=== PATIENT | female | born 2000 | race Caucasian/White ===

== ENCOUNTER 2021-07-23 14:12 | Emergency (ER) | payer OTHER, SELFPAY ==
[2021-07-23 14:28] VITALS: BP 122/81; PULSE 94; RESP 16; TEMP 36.5; O2SAT 99
--- NOTE | 2021-07-23 14:32 | XRR_ITS ---
PROCEDURE INFORMATION: Exam: XR Left Shoulder Exam date and time: 07/23/2021 2:32 PM Age: 21 years old Clinical indication: Pain; Shoulder; Left; Additional info: Shoudler dislocation TECHNIQUE: Imaging protocol: XR Left shoulder. Views: 2 or more views. COMPARISON: No relevant prior studies available. FINDINGS: Bones/joints: Normal. No fracture or dislocation. Soft tissues: Normal. XR/XR shoulder LT min 2V* 43222 IMPRESSION: No fracture or dislocation. Radiation Dose CTDIVOL = (mGy): DLP = (mGy-cm)
[2021-07-23 14:33] VITALS: TEMP 36.2; BMI 29.8
[2021-07-23] MEDS: acetaminophen 500 mg Tablet 1000 MG PO (14:40)
[2021-07-23] MEDS: ketorolac 30 mg/mL INJ IVP (14:42)
--- NOTE | 2021-07-23 14:46 | PC.NURSE ---
Pt states she was at work this morning and was attempting to assist a pt with sitting when she felt a pop in her left shoulder and had immediate pain in the shoulder and scapula area. Pt reports she has been unable to move her arm since. Pt A/O x4.
--- NOTE | 2021-07-23 14:49 | ED_ITS ---
HPI - General Adult General: Chief complaint: Extremity Injury, Upper Stated complaint: L SHOULDER INJURY: W/C Time Seen by Provider: 07/23/21 14:25 History of Present Illness: HPI narrative: 21-year-old female with no significant past medical history presents emergency room with complaints of left shoulder pain and decreased range of motion since 1030 this morning. 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 Since then, patient has difficulty ranging the left shoulder with significant shooting pain down the arm. Patient has no numbness, decreased range of motion or weakness in the left side. No other focal injuries at this time. Onset: 4 hrs ago Duration:4 hrs Location:home Severity:moderate Review of Systems Narrative: Constitutional: No fever, no chills. HEENT: No vision changes CV: No chest pain, no palpitations PULM: no cough, no dyspnea. GI: No abdominal pain, no N/V/D. : No dysuria, +l shoulder pain MSKEL: No muscle pain SKIN: No new rashes, no lesions. NEURO: No headache, no focal weakness. HEME: No visible bruises PSYCH: Normal mood Physical Exam Narrative: EXAM NARRATIVE: Head: Atraumatic Eyes: PERRL, conjunctiva without injection ENT: Mucous membrane moist NECK: Supple, ROM intact LUNGS: LCTAB, no crackles/rhonchi CV: RRR ABDOMEN: Soft, nontender in all quadrants EXTREMITY: +decreased ROM of the L shoulder due to pain, sensation over the L deltoid intact, 2+ radial pusle L side, neurovascular exam intact L hand SKIN: No rash or erythema NEURO: Awake and alert, no focal motor deficits PSYCH: Normal mood and affect Course Vital Signs: Vital signs: Vital Signs Temperature 97.1 F L 07/23/21 14:33 Pulse Rate 94 07/23/21 14:28 Respiratory Rate 16 07/23/21 14:28 Blood Pressure 122/81 07/23/21 14:28 Pulse Oximetry 99 07/23/21 14:28 MDM - General Adult MDM Narrative: Medical decision making narrative: 21-year-old female with no significant past medical history presents emergency room with complaints of left shoulder pain. On exam, patient's patient is unable to range the left shoulder due to pain. Left shoulder does not look grossly dislocated. Neurovascular exam of the left side intact. Axillary sensation over the left deltoid intact. X-rays not show any signs of acute dislocation, or acute fracture. Given toradol IM and tylenol I have given patient follow up with our case finisher to be seen by our outpatient Orthopedics for management of shoulder pain. Patient aware of a call from our case finisher to schedule for appointment(s) and verbalizes understanding of the importance of following up. Patient is informed to get an MRI of the shoulder should she still have pain and decreased range of motion as she may still have a rotator cuff tear at this time. I have offered patient a CT of the shoulder just to ensure there is no occult fracture, however patient at this time declined. Patient elects to follow-up with her primary care provider further evaluation. I have informed patient to get a repeat x-ray in 1 week to ensure that there is no occult fracture at this time. Rx lidocaine patch, menthol, tylenol, and norflex PRN pain Disposition: Discharge. Patient counseled regarding diagnostic impression, treatment plan. Patient given ED strict return precautions to return for continuation, worsening, or development of new symptoms. Instructed to f/u w/ PCP and orthopedics regarding symptoms today. Patient verbalized understanding. Imaging Data^: Other Imaging: Radiologist's impression: [id number] [place], [place] [id number] ReportSigned Patient: Ileana Granado #: [id number]: [id number]#:[id number]/Sex: 21 / FADM Date: 07/23/21[facility]Attending Dr: Ordering Provider/Ordering MD: Radha Pang MD Date of Service: 07/23/21 Procedure(s): XR shoulder LT min 2V* 11425 Accession Number(s): [id number] Report Number: [id number] PROCEDURE INFORMATION: Exam: XR Left Shoulder Exam date and time: 07/23/2021 2:32 PM Age: 21 years old Clinical indication: Pain; Shoulder; Left; Additional info: Shoudler dislocation TECHNIQUE: Imaging protocol: XR Left shoulder. Views: 2 or more views. COMPARISON: No relevant prior studies available. FINDINGS: Bones/joints: Normal. No fracture or dislocation. Soft tissues: Normal. XR/XR shoulder LT min 2V* [id number] IMPRESSION: No fracture or dislocation. Radiation Dose CTDIVOL = (mGy): DLP = (mGy-cm) Dictated By:Rey Marx MDSigned By:Rey Marx MDSigned Date/Time:07/23/21 1527DD/ 1432 Discharge Plan Discharge Patient Disposition: Home Clinical Impression: Acute shoulder pain Condition: Stable Prescriptions: New acetaminophen 500 mg tablet 500 mg PO Q6H PRN (Reason: pain) 5 Days Qty: 20 RF: 0 lidocaine 5 % adhesive patch,medicated 1 patch topical DAILY PRN (Reason: pain) 10 Days Qty: 10 RF: 0 orphenadrine citrate 100 mg tablet extended release 100 mg PO BID PRN (Reason: pain) 10 Days Qty: 20 RF: 0 Biofreeze (menthol) 5 % gel 1 ea topical BID PRN (Reason: pain) 10 Days Qty: 1 RF: 0 Discharge Orders: Discharge ED (Routine); Ordered 07/23/21 Ordered By: Radha Pang Referrals: Kylah Edwards MD [Primary Care Provider] - Discharge Diet: Advance as tolerated Discharge Activity: Resume usual activity Patient Instructions: Swollen Joint (ED), Shoulder Pain (ED) Activity Restrictions/Additional Instructions: Our case finisher will have you follow-up with Orthopedics in the next few days. You would be expected to have a phone call with our case finisher who will put you on the schedule. Come back to the emergency room you have any worsening pain, numbness, weakness, or any new or concerning complaints. Please use the sling as needed for pain. 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
[2021-07-23 15:46] VITALS: BP 121/75; PULSE 73; RESP 16; O2SAT 99
--- NOTE | 2021-07-25 09:43 | DCPLANNER ---
senior electrical project manager had message to schedule a follow up appointment for patient with ortho. senior electrical project manager called the ortho clinic, spoke with Elma, gave clinic patients information. senior electrical project manager was told that patients information would be printed and reviewed. Clinic will call patient with appointment information.
--- NOTE | 2021-07-27 14:47 | DCPLANNER ---
Patient has a follow up appointment scheduled for Sunday, July at 8:[address] Escudero at [facility]. Clinic will call patient with appointment information.
--- NOTE | 2021-10-09 15:53 | DCPLANNER ---
Patient had a follow up appointment scheduled with ortho - patient did attend appointment.
== END 2021-07-23 16:01 | disposition home or self-care (01) ==
PROVIDERS: Emergency Provider Emergency Medicine; PCP Family Medicine
DX: M25.512 Pain in left shoulder (principal)
CPT/HCPCS: 73030; 96374; 99283; 99291; J1885

== ENCOUNTER 2021-09-01 11:29 | Outpatient (CLI) | payer OTHER, SELFPAY ==
--- NOTE | 2021-09-01 11:45 | MR_ITS ---
WS: [id number] MRI LEFT SHOULDER HISTORY: S49.90XA - Unspecified injury of shoulder and upper arm, ... COMPARISON: Radiograph 07/23/2021 TECHNIQUE: Multiplanar sequences of the shoulder joint are submitted. Normal AC joint. No marrow edema or AC joint widening. No subacromial or subdeltoid bursal fluid. No os acromion. Biceps tendon is normally positioned within the bicipital groove. Normal glenohumeral joint. No fracture or marrow edema. No muscle atrophy or edema. No rotator cuff t ear. There is mild thickening and heterogeneous signal within the rotator cuff interval and the corac ohumeral ligament. There is also some mild increased signal and thickening within the distal subscapu anais tendon. No full-thickness tear. No adjacent fluid. No labral tear. Coracohumeral interval is 4. 5 mm. MR/MR shoulder LT wo con* [id number] IMPRESSION: 1. Increased signal thickening consistent with tendinopathy in the distal subs capularis tendon. 2. Mild thickening and edema within the coracohumeral ligament. 3. No fractures or marrow edema.
== END 2021-09-01 11:30 | disposition home or self-care (01) ==
PROVIDERS: PCP Family Medicine; Visit Provider Specialist
DX: S49.92XA Unspecified injury of left shoulder and upper arm, initial encounter (principal); X58.XXXA Exposure to other specified factors, initial encounter
CPT/HCPCS: 73221

== ENCOUNTER → 2021-09-14 09:45 | Outpatient (BNVA) | payer MEDICAID, SELFPAY | PROVIDERS: PCP Family Medicine; Visit Provider Nurse Practitioner Family | DX: R11.0 Nausea (principal) | CPT/HCPCS: 81025 ==

== ENCOUNTER → 2021-11-15 15:10 | Outpatient (BNVA) | payer MEDICAID, OTHER, SELFPAY | PROVIDERS: PCP Family Medicine; Referring Provider Family Medicine; Visit Provider Nurse Practitioner Women's Health | DX: N92.6 Irregular menstruation, unspecified (principal); N76.0 Acute vaginitis | CPT/HCPCS: 84146; 84439; 84443; 84702; 87070; 87205; 87491; 87591; 87661 ==